=== PATIENT | female | born 2005 | race Caucasian/White ===

== ENCOUNTER 2025-07-27 00:49 | Outpatient (CLI) | payer BC, SELFPAY | END 2025-07-27 00:50 | disposition home or self-care (01) | LOC: AMB 07-29 17:37 | PROVIDERS: Visit Provider Emergency Medicine | DX: F10.129 Alcohol abuse with intoxication, unspecified (principal); R41.82 Altered mental status, unspecified | CPT/HCPCS: A0425; A0427 ==

== ENCOUNTER 2025-07-27 01:10 | Emergency (ER) | payer BC, SELFPAY ==
--- OUTSIDE RECORDS SUMMARY | 2025-07-27 01:13 | XMS_ITS | Clinical Summary ---
Author Organization [employer] Address [facility] [place] [address] Care Team Providers Care Certified Neurodiagnostic Technologist Name Role Phone Pcp, No Primary Care Provider Unavailabl e Allergies No known active allergies Medications spironolactone (ALDACTONE) 50 mg tablet Take 50 mg by mouth once daily. 05/19/2025 Active meloxicam 15 mg tabletIndication s:Nontraumatic coccydynia Take 1 Tablet (15 mg) by mouth once daily. 30 Tablet 1 06/02/2025 Active Active Problems No known active problems Resolved Problems Problem Noted Date Diagnosed Date Resolved Date Acne vulgaris 05/28/2020 01/02/2023 Overview (05/28/2020): Followed by Dermatology, on Accutane as of 04/2020 Self-injurious behavior 09/08/2017 09/0 11/2019 Moderate single current epis ode of major depressive disorder 09/08/2017 05/28/2020 Anxiety 09/08/2017 05/28/2020 Dog bite, hand 06/24/2013 07/24/2014 Undiagnosed cardiac murmurs 05/16/2005 10/03/2005 Overview (05/16/2005): F/U @ 1yr. IF PERSISTS...FOLLOWED BY PEDS CARDIOLOGY x110/06/03 Esophageal reflux 05/16/2005 10/03/2005 Atypical nevus 05/28/2020 Overview (09/23/2010): Derm eval 08/09/10. Removal recommended (Plastic surgeon). Encounters Date Type Department Care Team Description 06/02/2025 2:00 PM CDT Office Visit [facility] [address] [place] [address] Bobby Mancera MD Musculoskeletal Problem (Consult for Coccyx pain) 06/02/2025 Travel 05/31/2025 Travel 05/30/2025 Telephone [facility] [address] [place] [address] Bobby Mancera MD Appointment Request (COCCYX FRACTURE) 05/28/2025 Orders Only [facility] [id number] [place] [id number] Tawanna Corona PA <No scans attached> 05/27/2025 12:00 PM CDT Ancillary Procedure [facility] [address] [place] [id number] 05/27/2025 11:20 AM CDT Office Visit [facility] [id number] [place] [address] Tawanna Corona PA Onset of tailbone bump x a few months, not painful 05/27/2025 Travel 05/22/2025 Travel from Last 3 Months Immunizations Immunization Administration Dates Next Due AMB Influenza, IIV3 (Age >=3 years)(Flu Clinic Only) 08/22/2008 COVID-19 vaccine (Pfizer-Bio NTech 30mcg/0.3mL) 12YO+ BIVALENT PF, MDV 01/02/2023 COVID-19 vaccine (Pfizer-Bio NTech 30mcg/0.3mL) PF, MDV 06/16/2021,05/13/2021 DTaP 10/03/2005 LIvE-[id number]-[id number] (Pediarix) 2004,2004,1 11/01/2003 DTaP-IPV (Kinrix) 08/12/2009 HIB PRP-OMP (PedvaxHIB) 10/03/2005,2004, HPV 9 (Gardasil 9) 07/13/2017,11/15/2016 Hepatitis A (Peds) 12/01/2017,11/15/2016 INFLUENZA, IIV3 PF (AGE >= 6 MO) 06/26/2024 Influenza Virus, Unspecified 07/10/2006,08/31/20 05,07/28/2005 Influenza, IIV3 (Age 6-35 mos) 07/10/2006,2004,07/28/2005 Influenza, IIV3 (Age >=3 years) 07/07/2009 Influenza,LAIV4 Live Intrana vicente (Flumist) 07/24/2014,08/01/2011,07/05/2010 MENINGOCOCCAL VACCINE 2 VIAL 2MO-55YO (MENVEO) 03/04/2022,11/15/2016 MMR 08/11/2009,07/28/2005 Pneumococcal conj 7-Valent (Prevnar 7) 0 10/03/2005,2004,2004,08/31 Tdap 12/13/2024,11/15/2016 Varicella Vaccine 08/11/2009,07/28/2005 Family History Medical History Relation Name Comments Multiple sclerosis Father Nicola MS Heart Disease Maternal Grandmother Pulmon siddhartha Hypertension Heart failure Maternal Grandmother Diasto lic congestive heart failure, presumable 2ndary to Pulm HTN Thyroid Disease Mother Genesis Borderline Other Paternal Aunt MS Diabetes Paternal Grandfather Other Paternal Grandfather MS Relation Name Status Comments Brother 1 Rj Alive 11/21/1999 Brother 2 Mj Alive 09/25/2006 Father Nicola Alive 03/03/1970 Maternal Grandmother desease d as of January 2017 Mother Genesis Alive 11/07/1966 Paternal Aunt Paternal Grandfather Social History Tobacco Use Types Packs/Day Years Used Date Smoking Tobacco: Never Passive Smoke Exposure: Never Smokeless Tobacco: Never Tobacco Cessation:Counseling Given: No Comments:no household smoke exp Alcohol Use Standard Drinks/Week Comments No 0 (1 standard drink = 0.6 oz pur e alcohol) PHQ-2 Answer Date Recorded PHQ-2 TOTAL SCORE 0 04/08/2025 Social Connections Answer Date Recorded Do you often feel lonely or isolated from those around you? 0 04/08/2025 Financial Resource Strain Answer Date R ecorded Difficulty of Paying Living Expenses 3 04/08/2025 Difficulty of Paying Living Expenses Not on file 04/08/2025 Food Insecurity Answer Date Recorded Do you worry your food will run out before you are able to buy more? 1 04/08/2025 Transportation Needs Answer Date Record ed Does lack of transportation keep you from medica l appointments? 1 04/08/2025 Does lack of transportation keep you from work, meetings or getting things that you need? 1 04/08/2025 Housing Stability Answer Date Recorded What is your housing situation today? 1 04/08/2025 Utilities Answer Date Recorded Do you have trouble paying f or utilities (for example, heat, electricity, water, phone)? 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 SPECIALIST Gender Identity Not on file Sexual Orientation Not on file Obstetrics History Last Filed Vital Signs Vital Sign Reading Time Taken Comments Blood Pressure 109/66 06/02/2025 2:11 PM CDT Pulse 73 06/02/2025 2:11 PM CDT Temperature 36.7 C (98.1 F) 06/02/2025 2:11 PM CDT Respiratory Rate 16 01/17/2016 9:55 PM CDT Oxygen Saturation 100% 06/02/2025 2:11 PM CDT Inhaled Oxygen Concentration - - Weight 59.7 kg (131 lb 9.6 oz) 06/02/2025 2:11 P M CDT Height 170.2 cm (5' 7.01) 06/02/2025 2:11 PM CD T Body Mass Index 20.61 06/02/2025 2:11 PM CDT Plan of Treatment Upcoming Encounters Date Type Department Care Team (Late st Contact Info) Description 07/28/2025 3:20 PM CODING SPECIALIST Office Visit [facility] [address] [place] [address] [place] [address] [place] [address] 08/19/2025 8:00 AM CODING SPECIALIST Office Visit [facility] [address] [facility] [address] [place], [place] [address] [place] [address] [facility] [address] [place], [place] [address] Health Maintenance Due Date Last Done Comments HIV for age 15-65 2019 Hepatitis C screening for age 18-79 2022 Influenza Vaccine (#1) 2025 , 07/24/2014, 08/01/2011, Additional history exists Pap test for age 21-65 2025 Depression screening for age 12+ 04/08/2026 04/08/2025, 01/02/2023, 06/08/2021, Additional history exists BMI (ht and wt on same day) for age 18+ 06/02/2026 06/02/2025, 05/27/2025, 04/08/2025, Additional history exists Tetanus booster 12/13/2034 12/13/2024, 11/15/2016 RSV vaccine for adults or (1 - 1-dose 75+ series) 2079 Hepatitis B series for 19+ Completed 12/27, 2004, 2004 Pneumococcal series for age 6-49 Aged Out 10/03/2005, 2004, 2004, Additional history exists No longer eligible based on patient's age to complete this topic HPV series for age 9-45 Completed 07/13/2017, 11/15 Meningococcal series for age 11-21 Completed 03/04/2022, 11/15/2016 Procedures Procedure Name Priority Date/Time Associated Diagnosis Comments XR SACRUM AND COCCYX MINIMUM 2 VIEWS Routine 05/27/2025 12:09 PM CDT Coccyx pain from Last 3 Months Results * XR SACRUM AND COCCYX MINIMUM 2 VIEWS (05/27/2025 12:09 PM CDT) Anatomical Region Laterality Modality Pelvis, SACRUM, COCCYX Computed Radiography 05/27/2025 1:52 PM CDT Narrative 05/27/2025 1:52 PM CDT For Patients: As a result of the Cures Act, medical imaging exams and procedure reports are released immediately into your electronic medical record. You may view this report before your referring provider. If you have questions, please contact your health care provider. INDICATION: Coccyx pain TECHNIQUE: Sacrum and coccyx 2 views. COMPARISON: None. FINDINGS/ IMPRESSION: Possible fracture and anterior subluxation/displacement of the 3rd coccygeal element. Bony sacrum is intact. Dictated by Merlene Simmons MD @ May 27 2025 1:52PM (Electronically Signed) [email or web address] Procedure Note Merlene Simmons MD - 05/27/2025 For Patients: As a result of the Cures Act, medical imagingexams and procedure reports are released immediately into your electronicmedical record. You may view this report before your referring provider.If you have questions, please contact your health care provider. INDICATION: Coccyx pain TECHNIQUE: Sacrum and coccyx 2 views. COMPARISON: None. FINDINGS/ IMPRESSION: Possible fracture and anterior subluxation/displacement of the 3rdcoccygeal element. Bony sacrum is intact. Dictated by Merlene Simmons MD @ May 27 2025 1:52PM (Electronically Signed) [email or web address] [facility] Final Res ult from Last 3 Months Insurance [employer] [id number] [place] [id number] Care Teams Certified Neurodiagnostic Technologist Relationship Specialty Start Date End Date Pcp, No . PCP - General 05/19/25
[2025-07-27 01:17] VITALS: O2SAT 98
[2025-07-27 01:18] VITALS: BP 119/74; PULSE 67; RESP 16; TEMP 36.9; O2SAT 100; BMI 28.1
--- NOTE | 2025-07-27 01:18 | ED.ALCOHOL ---
HPI - Alcohol General Time Seen by Provider: 01:18 Date Seen: 07/27/25 Chief Complaint: Alcohol/Intoxication Stated Complaint: ETOH Time Seen by Provider: 07/27/25 01:17 CDT Source: patient and EMS Mode of arrival: EMS Limitations: altered mental status (acute alcohol intoxication) History of Present Illness HPI narrative: Molly is a 20 yo female with no significant past medical who presents emergency department by EMS for evaluation of acute alcohol intoxication. Per EMS patient was out, drinking alcohol, vomiting, and friends called due to decreased responsiveness. EMS reports vomiting prior to arrival, Zofran given prior to arrival. Patient reports that she drinks 5 shots, denies any trauma or injury, denies any other substance use, no other complaints. Related Data Allergies Allergy/AdvReac Type Severity Reaction Status Date / Time Unable to Assess Allergy Verified 07/27/25 01:24 CDT Review of Systems Status of ROS Reports: unobtainable due to mental status Exam Narrative: Exam Narrative: General: Afebrile, intoxicated, no acute distress HEENT: Normocephalic, atraumatic, PERRL, EOMI, conjunctiva normal. MMM Neck: non-tender, supple Cardio: regular rate. regular rhythm Resp: Normal work of breathing, no respiratory distress, lungs clear bilaterally, no wheezing, rhonchi, rales Chest/Back: no visual signs of trauma, no midline tenderness, no CVA tenderness Abdomen: soft, non distension, no tenderness, no peritoneal signs Neuro: Decreased responsiveness but responds to verbal stimuli and able to answer questions. Moving all extremities, no focal deficits MSK: no deformities. Normal range of motion Integumentary/Skin: no rash visualized, normal color Psych: normal affect, normal behavior Const: Vital Signs, click to edit/add: Vital Signs - 24 hr 07/27/25 01:18 CDT Temperature 98.4 F Pulse Rate [Right Pulse Oximeter] 67 Respiratory Rate 16 Blood Pressure [Ri ght Upper Arm] 119/74 Pulse Oximetry 100 Oxygen Delivery Me thod Room Air Course Vital Signs Vital signs: Initial Vital Signs Temperature 98.4 F 07/27/25 01:18 CDT Temperature Source Temporal Artery Scan 07/27/25 01:18 CDT Pulse Rate 67 07/27/25 01:18 CDT Pulse Rhythm Regular 07/27/25 01:18 CDT Pulse Strength 3+ Normal 07/27/25 01:18 CDT Respiratory Rate 16 07/27/25 01:18 CDT Blood Pressure 119/74 07/27/25 01:18 CDT Blood Pressure Mean 89 07/27/25 01:18 CDT Blood Pressure Position Sitting 07/27/25 01:18 CDT Pulse Oximetry 100 07/27/25 01:18 CDT Oxygen Delivery Method Room Air 07/27/25 01:18 CDT Vital Signs Temperature 98.4 F 07/27/25 01:18 CDT Pulse Rate 67 07/27/25 01:18 CDT Respiratory Rate 16 07/27/25 01:18 CDT Blood Pressure 119/74 07/27/25 01:18 CDT Pulse Oximetry 100 07/27/25 01:18 CDT Oxygen Delivery Method Room Air 07/27/25 01:18 CDT Temperature 98.4 F 07/27/25 01:18 CDT Pulse Rate 67 07/27/25 01:18 CDT Respiratory Rate 16 07/27/25 01:18 CDT Blood Pressure 119/74 07/27/25 01:18 CDT Pulse Oximetry 100 07/27/25 01:18 CDT Oxygen Delivery Method Room Air 07/27/25 01:18 CDT Medications Administered Medications: Generic Name Dose Route Start Last Admin Trade Name Freq PRN Reason Stop Dose Admin Sodium Chloride 1,000 mls @ 1,000 mls/hr 07/27/25 01:30 DEVELOPMENT ENG 07/27/25 02:09 0.9 % Sodium Chloride 1000 Ml IV 07/27/25 02:29 Infused .Q1H GARY Infusion Discontinued Medications Generic Name Dose Route Start Last Admin Trade Name Freq PRN Reason Stop Dose Admin Ondansetron HCl 4 mg 07/27/25 01:17 DEVELOPMENT ENG 07/27/25 01:30 CDT Ondansetron 2 Mg/Ml Inj IVP 07/27/25 01:18 DEVELOPMENT ENG 4 mg ONCE ONE Administration MDM - Alcohol MDM Narrative Medical decision making narrative: Yoli is previously healthy 20-year-old female who presents the emergency department for acute alcohol intoxication. Upon arrival patient is intoxicated but otherwise nontoxic appearing, afebrile, in some distress secondary to dry heaving. Patient was treated with IV Zofran, 1 L IV fluid bolus upon arrival. Patient monitored in the emergency department with no worsening symptoms, patient with improvement of her mental status, awake, alert, ambulating, eating and drinking. Patient with no episodes tachycardia, hypoxic, no respiratory distress. Patient reports feeling much better in states that she just drank too much. Patient feels comfortable with discharge. Patient will be discharged with campus security back to her hel thing. Strict return precautions discussed. Patient understands and agrees the plan. Medical Records Attestation: I reviewed the patient's medical records. Discharge Plan Discharge Clinical Impression: Alcoholic intoxication Patient Disposition: Home, Self-Care Condition: Improved Additional Instructions: Please rest, drink plenty of fluids. Return to the emergency department any worsening symptoms. It was a pleasure taking care of you today. We hope you feel better soon. Follow Up/Referrals: Provider,Not a Local [Primary Care Provider, Family Practice] Stand Alone Forms: [employer] Info Instructions
[2025-07-27] MEDS: ONDANSETRON 2 MG/ML inj 4 MG IVP (01:30)
--- OUTSIDE RECORDS SUMMARY | 2025-07-27 02:11 | XMS_ITS | Patient Health Record ---
Author Organization [facility] Address [address] [place] [address] Care Team Providers Care Laundry Technician Name Role Phone Nadya Avendaño Primary Care Provider DEUCE Alexander Unavailable [phone] Allergies No Known Allergies Reason For Referral No Information Social History Tobacco Use: Social History Observation Description Date Details (start date - stop date) Never Smoker NA - NA Social History Alcohol Use: Social Info Question Answer Notes Recreational drugs Recreational Drug Use: No Alcohol Screen Did you have a drink containing alcohol in the past year? No Tobacco Use: Social Info Question Answer Notes Tobacco Control (Standard) Tobacco use: Nonsmoker Problems Problem Type SNOMED Code ICD Code Onset Dates Problem Status W/U Status Risk Notes Problem Throat irritation (619468564) Throat irritation (J39.2) Active confirmed Problem Chronic laryngitis (83234624) Laryngitis, chronic (J37.0) Active confirmed Problem Globus sensation (468816624) Globus sensation (R09.A2) Active confirmed Plan Of Treatment No Information Insurance Providers Payer Name Payer Address Payer Phone Subscriber Number Group Number Insured Name Patient Relationship to Insured Coverage Start Date Coverage End Date [employer] [facility] [address] [address] [place] [address] [id number] Molly Damon Self - patient is the insured Medical (General) History Surgical History Surgery Date(Month/Year) Hospitalization History Reason Date(Month/Year)
== END 2025-07-27 02:18 | disposition home or self-care (01) ==
PROVIDERS: Emergency Provider Emergency Medicine
DX: F10.120 Alcohol abuse with intoxication, uncomplicated (principal)
CPT/HCPCS: 94761; 96361; 96374; 99283; 99284; 99285; J2405; J7030